=== PATIENT | female | born 1970 | race Caucasian/White ===

== ENCOUNTER 2020-02-22 11:17 | Day surgery (SDC) | payer OTHER ==
[2020-02-21 09:50] VITALS: BMI 39.4
--- NOTE | 2020-02-22 11:53 | EKG ---
Test Reason : Blood Pressure : / mmHG Vent. Rate : 065 BPM Atrial Rate : 065 BPM P-R Int : 136 ms QRS Dur : 088 ms QT Int : 418 ms P-R-T Axes : 028 063 045 degrees QTc Int : 434 ms NORMAL SINUS RHYTHM NORMAL ECG NO PREVIOUS ECGS AVAILABLE Confirmed by DIEGO REECE MD ([id number]) on 02/22/2020 11:52:36 AM Referred By: BELLA SANDHU Confirmed By:DIEGO REECE MD
[2020-02-22 12:02] LABS: BASO % 1.4 % (0-2.0); EOS % 1.8 % (0-4.5); HEMATOCRIT 41.4 % (32.4-45.2); HEMOGLOBIN 13.7 GM/dL (10.7-15.3); LYMPH % 34.8 % (8-40); MCH 30.3 pg (25.7-33.7); MEAN CELL VOLUME 91.9 fl (80-96); MEAN PLT VOLUME 9.3 fl (7.5-11.1); MONO % 7.8 % (3.8-10.2); NEUT % 54.2 % (42.8-82.8); PLATELET COUNT 256 K/MM3 (134-434); RBC 4.51 M/mm3 (3.60-5.2); RDW 14.2 % (11.6-15.6); WHITE BLOOD COUNT 7.7 K/mm3 (4.0-10.0)
[2020-02-22 12:09] LABS: INR 0.98 (0.83-1.09); PROTHROMBIN TIME (PATIENT) 11.6 SEC (9.7-13.0)
[2020-02-22 12:11] LABS: ACTIVATED PTT 32.9 SECONDS (25.2-36.5)
[2020-02-22 12:40] LABS: ANION GAP 7 MMOL/L (8-16); CALCIUM 9.2 mg/dL (8.5-10.1); CHLORIDE 106 mmol/L (98-107); CO2 28 mmol/L (21-32); CREATININE 0.7 mg/dL (0.55-1.3); GLUCOSE,RANDOM 105 mg/dL (74-106); POTASSIUM 3.9 mmol/L (3.5-5.1); SODIUM 141 mmol/L (136-145)
--- NOTE | 2020-02-22 13:31 | HP ---
History & Physical Update - Physical Physical: No Change - Assessment Assessment: No Change - Plan Plan: No Change (H&P reviwed , no changes, for hysteroscopy, polypectomy)
[2020-02-22] MEDS ORDERED: MIDAZOLAM HCL 2 MG/2 ML SINGLE DOSE VIAL ONE (14:19)
[2020-02-22] MEDS ORDERED: PROPOFOL 20 ML ONE ×2 (14:19)
[2020-02-22] MEDS ORDERED: SUCCINYLCHOLINE CHLORIDE 200 MG/10 ML SYRINGE ONE (14:19)
[2020-02-22] MEDS ORDERED: DEXAMETHASONE SOD PHOSPHATE 4 MG/1 ML VIAL ONE (14:24)
[2020-02-22] MEDS ORDERED: KETOROLAC TROMETHAMINE 30 MG/1 ML VIAL ONE (14:24)
[2020-02-22] MEDS ORDERED: oxyCODONE HCL 5 MG TABLET PO PRN ×2 (15:09→15:28)
[2020-02-22] MEDS ORDERED: ONDANSETRON 4 MG/2 ML VIAL IVPUSH PRN ×2 (15:09→15:28)
[2020-02-22] MEDS ORDERED: LACTATED RINGERS SOLUTION 1,000 ML IV SCH (15:15)
[2020-02-22] MEDS ORDERED: IBUPROFEN 800 MG/8 ML IJ IVPB PRN (15:28)
[2020-02-22] MEDS ORDERED: IBUPROFEN 600 MG TABLET (FP) PO PRN (15:28)
[2020-02-22] MEDS ORDERED: ELECTROLYTE-148 SOLN 1,000 ML IV SCH (15:30)
--- NOTE | 2020-02-22 15:32 | OP ---
Operative Note - Note: Operative Date: 02/22/20 Pre-Operative Diagnosis: menorrhagia, submucos myoma Operation: hysteroscopy , removal of submucos myoma Findings: fundal submucos myoma Surgeon: Ankit Lainez Anesthesia: General Specimens Removed: portion of myoma, EMC Estimated Blood Loss (mls): 25 Drains & Tubes with Location: none Operative Report Dictated: Yes
[2020-02-22 16:56] VITALS: BP 124/69; PULSE 68; TEMP 97.6
--- NOTE | 2020-02-22 18:13 | OP ---
DATE OF OPERATION: 02/22/2020 PREOPERATIVE DIAGNOSIS: Postmenopausal bleeding and menorrhagia. POSTOPERATIVE DIAGNOSIS: Postmenopausal bleeding and menorrhagia. Submucosal myoma. SURGEON: Ankit Lainez MD. ANESTHESIA: General. PROCEDURE: Hysteroscopy, dilation and curettage, and removal of the submucous myoma, and dilation and curettage. ESTIMATED BLOOD LOSS: 25 mL. OPERATION: Patient was taken to operating room, had adequate general anesthesia, in dorsal lithotomy position examination under anesthesia revealed external genitalia to be normal. Vagina was normal, cervix was clean, no lesion. Uterus was slightly prominent. Adnexa, no masses were palpable. Then, with a weighted speculum in the vagina, anterior lip of the cervix was grasped with a single-toothed tenaculum. Uterine cavity was sounded to 9 cm. Then cervix was slightly dilated with Hegar dilator, and hysteroscope was introduced. Visualization of the endocervical canal appeared to be normal. Endometrium for most parts was atrophic, but it had a submucous myoma in the fundal area approximately 1-2 cm. Then bleeding was seen coming from the fibroid. This time cervix was further dilated, and then with a polyp forceps, the myoma was grasped, and then twisted, and removed, and then endometrium was curetted with sharp curet, then hysteroscope was reintroduced and showed the fibroid was removed. Patient tolerated procedure well, left the OR in good condition. ANKIT LAINEZ M.D. [id number]
--- NOTE | 2020-02-26 17:09 | PATH ---
Surgical Pathology Report Patient Name: SERA GILES [facility]. Rec. #: [id number] /Age/Gender: 1970 (Age: 49) / F Account: [id number] Location: [facility] SURGICAL Taken: 02/22/2020 Received: 02/23/2020 Reported: 02/26/2020 Physicians: Ankit Lainez M.D. Specimen(s) Received A: ENDOMETRIAL CURETTINGS/EMC B: UTERINE FIBROID Clinical History Postmenopausal bleeding Final Diagnosis A. ENDOMETRIAL CURETTINGS/EMC, DILATION AND CURETTAGE: FRAGMENTS OF ENDOMETRIAL POLYP, PROLIFERATIVE ENDOMETRIUM, AND BENIGN CERVICAL TISSUE ADMIXED WITH MUCUS AND BLOOD. B. UTERINE FIBROID, HYSTEROSCOPY, DILATION AND CURETTAGE: FRAGMENTS OF ENDOMETRIAL POLYP, SCANT FIBROMUSCULAR TISSUE SUGGESTIVE OF SUBMUCOSAL LEIOMYOMA, AND BENIGN CERVICAL TISSUE. Electronically Signed Sera Bird M.D. Gross Description A. Received in formalin labeled "endometrial curettings," is a 4.0 x 3.3 x 0.3 cm aggregate of whelan brown soft tissue fragments admixed with blood clot. The formalin is filtered and the specimen is entirely submitted in 2 cassettes. B. Received in formalin labeled "uterine fibroid," is a 2.0 x 1.8 x 0.2 cm aggregate of whelan-brown soft tissue fragments. The formalin is filtered and the specimen is entirely submitted in one cassette. DL/02/23/2020 saudi/02/23/2020
== END 2020-02-22 17:06 | disposition home or self-care (01) ==
LOC: JASU-SURG 11:17
PROVIDERS: ATTEND Obstetrics & Gynecology
PROC: 0UJD8ZZ Inspection of Uterus and Cervix, Via Natural or Artificial Opening Endoscopic (ICD-10-PCS; 2020-02-22)
PROC: 0UB98ZZ Excision of Uterus, Via Natural or Artificial Opening Endoscopic (ICD-10-PCS; principal; 2020-02-22 14:00)
PROC: 0UDB7ZX Extraction of Endometrium, Via Natural or Artificial Opening, Diagnostic (ICD-10-PCS; 2020-02-22 14:00)
DX: N95.0 Postmenopausal bleeding (principal); D25.0 Submucous leiomyoma of uterus
CPT/HCPCS: 36415; 80048; 84702; 85025; 85610; 85730; 86850; 86900; 86901; 88305-TC; 93005; 93010; 94760